=== PATIENT | male | born 1945 | race Caucasian/White ===

== ENCOUNTER 2025-05-16 11:32 | Day surgery (SDC) | payer MEDICARE, SELFPAY ==
--- NOTE | 2025-05-10 18:07 | PAT.ANESEVAL ---
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 When Was Last Pacemaker Check QUESTION #4 FULL TEXT: You/Your Family Experience fever (hyperthermia) with Anesthesia Last Oral Intake Last Oral intake: Last Oral Intake NPO since Meds taken in AM with sips of water? Meds patient instructed to take am of surgery PONV PONV - retail manager in training: PONV - retail manager in training Female No 05/10/25 10:18 HX of Motion Sickness No 05/10/25 10:18 HX of N/V After Surgery No 05/10/25 10:18 Non-Smoker No 05/10/25 10:18 Duration of Surgery greater No 05/10/25 10:18 than 60 minutes Number of Risk Factors PONV Score Height & Weight Height & Weight: Anesthesia: Height & Weight Height 5 ft 7 in 01/11/25 19:30 Respiratory Assessment Respiratory Assessment - retail manager in training: Respiratory Tract Infection Hx - retail manager in training Hx Respiratory Tract Infection No 05/10/25 10:18 STOP Sleep Apnea STOP Sleep Apnea - retail manager in training: STOP Sleep Apnea - retail manager in training Hx Hypertension Yes: CONTROLLED WITH MED 05/10/25 10:18 Hx Sleep Apnea No 05/10/25 10:18 CPAP BIPAP Do you snore loudly (louder No 05/10/25 10:18 than talking or can be heard Do you often feel tired/ No 05/10/25 10:18 fatigued/ sleepy during daytime? Has anyone observed you stop No 05/10/25 10:18 breathing during sleep? STOP Results Negative 05/10/25 10:18 QUESTION #5 FULL TEXT : Do you snore loudly (louder than talking or can be heard through closed doors)? 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 Specify any problems Hx of Preganancy in last 3 N/A 05/10/25 10:18 Months Nurse Filling Out Transfusion NBUCHER 05/10/25 10:18 & Questions: Date: 05/10/25 05/10/25 10:18 Time: 10:20 05/10/25 10:18 Patient unable to answer at this time (ie. confused, unrespo /Reproduction History /Reproductive History - retail manager in training: /Reproductive Hx- retail manager in training Hx Now No 05/10/25 10:18 Gestational Age (in weeks): EDC: Hx Hx Para Hx Section SAB No 05/10/25 10:18 PFS Medical History (Updated 05/10/25 @ 15:27 by Meggan Guerrero) History of Holter monitoring Wears glasses Thyroid disease Ambulates with cane Gout Arthritis High cholesterol Smoker Shortness of breath on exertion History of edema History of echocardiogram History of stress test Cardiology follow-up encounter History of atrial fibrillation Cancer Localized osteoarthritis of left knee Bladder spasm Hypertension Hypothyroidism (acquired) GERD (gastroesophageal reflux disease) Atrial fibrillation and flutter Hyperlipidemia Gout Home Medications ?Medication ?Instructions ?Recorded ?Last Taken ?Type allopurinol 300 mg tablet 300 mg PO DAILY 04/11/23 Unknown History apixaban 5 mg tablet (Eliquis) 5 mg PO BID 04/11/23 Unknown History atorvastatin 40 mg tablet 40 mg PO DAILY 04/11/23 Unknown History esomeprazole magnesium 20 mg 20 mg PO DAILY 04/11/23 Unknown History capsule,delayed release levothyroxine 100 mcg tablet 100 mcg PO DAILY 04/11/23 Unknown History losartan 50 mg tablet 25 mg PO DAILY 04/11/23 Unknown History oxybutynin chloride 15 mg 15 mg PO DAILY 04/11/23 Unknown History tablet,extended release 24 hr Kenalog 40 mg/mL suspension for 80 mg (2 mL) intra-articular ONCE 12/02/24 Unknown Clinic injection (triamcinolone acetonide) #2 mL aspirin 81 mg tablet,delayed 81 mg PO QDAY 01/11/25 Unknown History release cholecalciferol (vitamin D3) 50 50 mcg PO QDAY 01/11/25 Unknown History mcg (2,000 unit) capsule furosemide 20 mg tablet 20 mg PO QAM 01/11/25 Unknown History magnesium oxide 400 mg PO QDAY 01/11/25 Unknown History mecobalamin (vitamin B12) 2,500 2,500 mcg PO DAILY 01/11/25 Unknown History mcg chewable tablet mirabegron 25 mg tablet,extended 25 mg PO DAILY 05/10/25 Unknown History release 24 hr (Myrbetriq) Allergy/AdvReac Type Severity Reaction Status Date / Time No Known Allergies Allergy Verified 05/10/25 10:06 Surgical History (Updated 05/10/25 @ 10:26 by Meggan Guerrero) History of heart surgery History of tonsillectomy History of surgical removal of skin lesion History of hernia repair History of appendectomy History of repair of rotator cuff History of total right knee replacement History of aortic valve replacement Social History Smoking Status: Current some day smoker tobacco type: cigarettes and cigars Audit: Pertinent Findings Pertinent Findings EKG Perinent findings: January 14, 2025. Atrial fibrillation. Left bundle branch block. Compared to EKG of June 24, 2022, atrial fibrillation is new. (Patient does have a history of paroxysmal atrial fibrillation.) Echo (EF%) pertinent findings: 07/04/2023. EF 60 to 65%. Well-seated TAVR, peak gradient 31 mmHg. RVSP is 41 mmHg. 06/01/2022. EF 70% after TAVR placed on 05/31/2020. Consult pertinent findings: 01/14/2025. Dr. James. 1. Aortic stenosis-status post TAVR 05/31/2022. Postprocedure left bundle branch block was noted. Echo from 07/04/2023 revealed well-seated TAVR valve with increased gradient of 31 mmHg. 2. CAD-mild on a pre-TAVR cardiac cath. No symptoms of angina. Continue atorvastatin. 3. Paroxysmal atrial fib. noted on post TAVR event recorder. [id number] score of 5. Patient has a history of previous TIA. Continue with Eliquis and diltiazem. Latest event recorder on 11/26/2023 showed sinus rhythm. 4. Hypertension-BP is high in office. Usually lower at home. 5. Syncope?no clear cause of underlying left bundle branch block. 30-day event monitor without A-fib. 6. Volume overload?possible HFpEF. Doing well with 20 mg of Lasix. Additional pertinent findings: Event monitor November 26, 2023. Predominant rhythm is sinus. Brief SVT 12 beats. No AFib. Recommendation Anesthesia Recommendation Anesthesia recommendation: OPTIMIZED for anesthesia
[2025-05-16] VITALS (8 sets, daily range): BP systolic 88–121; BP diastolic 52–79; PULSE 75–80; RESP 16–18; TEMP 36.3–36.5; O2SAT 92–97; BMI 34.3
--- NOTE | 2025-05-16 11:51 | PCM.PRE.AN2 ---
ASA Classification* ASA Classification ASA Classification: 3 Assessment & Plan Anesthesia* Anesthesia Assessment Anesthesia Assessment: Discussed sedation and/or anesthesia options, risks, benefits, and alternatives with patient/parents/legal guardian/POA. Questions invited. The patient/parents/legal guardian/POA seems to understand and agrees to proceed with anesthesia plan. Reviewed the physical assessment, medical history, allergy history and patient home medications list prior to surgery/procedure/anesthetic and documented any changes. Performed airway and anesthesia risk assessments. 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 When Was Last Pacemaker Check QUESTION #4 FULL TEXT: You/Your Family Experience fever (hyperthermia) with Anesthesia Last Oral Intake Last Oral intake: Last Oral Intake NPO since Meds taken in AM with sips of water? Meds patient instructed to take am of surgery PONV PONV - member service specialist: PONV - member service specialist Female No 05/10/25 10:18 HX of Motion Sickness No 05/10/25 10:18 HX of N/V After Surgery No 05/10/25 10:18 Non-Smoker No 05/10/25 10:18 Duration of Surgery greater No 05/10/25 10:18 than 60 minutes Number of Risk Factors PONV Score Height & Weight Height & Weight: Anesthesia: Height & Weight Height 5 ft 7 in 01/11/25 19:30 Respiratory Assessment Respiratory Assessment - member service specialist: Respiratory Tract Infection Hx - member service specialist Hx Respiratory Tract Infection No 05/10/25 10:18 STOP Sleep Apnea STOP Sleep Apnea - member service specialist: STOP Sleep Apnea - member service specialist Hx Hypertension Yes: CONTROLLED WITH MED 05/10/25 10:18 Hx Sleep Apnea No 05/10/25 10:18 CPAP BIPAP Do you snore loudly (louder No 05/10/25 10:18 than talking or can be heard Do you often feel tired/ No 05/10/25 10:18 fatigued/ sleepy during daytime? Has anyone observed you stop No 05/10/25 10:18 breathing during sleep? STOP Results Negative 05/10/25 10:18 QUESTION #5 FULL TEXT : Do you snore loudly (louder than talking or can be heard through closed doors)? 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 Specify any problems Hx of Preganancy in last 3 N/A 05/10/25 10:18 Months Nurse Filling Out Transfusion NBUCHER 05/10/25 10:18 & Questions: Date: 05/10/25 05/10/25 10:18 Time: 10:20 05/10/25 10:18 Patient unable to answer at this time (ie. confused, unrespo /Reproduction History /Reproductive History - member service specialist: /Reproductive Hx- member service specialist Hx Now No 05/10/25 10:18 Gestational Age (in weeks): EDC: Hx Hx Para Hx Section SAB No 05/10/25 10:18 Active Medications Active Medications: Current Medications Generic Name Dose Route Start Last Admin Trade Name Freq PRN Reason Stop Dose Admin Lactated Ringer's 1,000 mls @ 15 mls/hr 05/16/25 12:00 IV .Q48H GELA PFSH Medical History History of Holter monitoring Wears glasses Thyroid disease Ambulates with cane Gout Arthritis High cholesterol Smoker Shortness of breath on exertion History of edema History of echocardiogram History of stress test Cardiology follow-up encounter History of atrial fibrillation Cancer Localized osteoarthritis of left knee Bladder spasm Hypertension Hypothyroidism (acquired) GERD (gastroesophageal reflux disease) Atrial fibrillation and flutter Hyperlipidemia Gout Home Medications ?Medication ?Instructions ?Recorded ?Last Taken ?Type allopurinol 300 mg tablet 300 mg PO DAILY 04/11/23 Unknown History apixaban 5 mg tablet (Eliquis) 5 mg PO BID 04/11/23 Unknown History atorvastatin 40 mg tablet 40 mg PO DAILY 04/11/23 Unknown History esomeprazole magnesium 20 mg 20 mg PO DAILY 04/11/23 Unknown History capsule,delayed release levothyroxine 100 mcg tablet 100 mcg PO DAILY 04/11/23 Unknown History losartan 50 mg tablet 25 mg PO DAILY 04/11/23 Unknown History oxybutynin chloride 15 mg 15 mg PO DAILY 04/11/23 Unknown History tablet,extended release 24 hr Kenalog 40 mg/mL suspension for 80 mg (2 mL) intra-articular ONCE 12/02/24 Unknown Clinic injection (triamcinolone acetonide) #2 mL aspirin 81 mg tablet,delayed 81 mg PO QDAY 01/11/25 Unknown History release cholecalciferol (vitamin D3) 50 50 mcg PO QDAY 01/11/25 Unknown History mcg (2,000 unit) capsule furosemide 20 mg tablet 20 mg PO QAM 01/11/25 Unknown History magnesium oxide 400 mg PO QDAY 01/11/25 Unknown History mecobalamin (vitamin B12) 2,500 2,500 mcg PO DAILY 01/11/25 Unknown History mcg chewable tablet mirabegron 25 mg tablet,extended 25 mg PO DAILY 05/10/25 Unknown History release 24 hr (Myrbetriq) Allergy/AdvReac Type Severity Reaction Status Date / Time No Known Allergies Allergy Verified 05/10/25 10:06 Surgical History History of heart surgery History of tonsillectomy History of surgical removal of skin lesion History of hernia repair History of appendectomy History of repair of rotator cuff History of total right knee replacement History of aortic valve replacement Social History Smoking Status: Current some day smoker tobacco type: cigarettes and cigars Review of Systems (Anesthesia) ROS Narrative System reviewed and no additional complaints, except as documented.
[2025-05-16] MEDS: Lactated Ringers 1,000 ML 15 ML IV (12:14)
--- NOTE | 2025-05-16 12:35 | RAD_ITS ---
PROCEDURE: FLUOR GUIDANCE FOR SPINE INJ 05/16/2025 REASON FOR EXAM: CAUDAL BLOCK TECHNIQUE: Procedure Code: RADSPN Modality: DX Procedure: FLUOR GUIDANCE FOR SPINE INJ. Intraoperative fluoroscopic services provided for caudal block. 4.3 seconds of fluoroscopy. Radiation dose: 3.12 mGy. 1 image was submitted. COMPARISON: None FINDINGS: Intraoperative fluoroscopic services provided for caudal block. RAD/Fluor Guidance for Spine Inj IMPRESSION: Intraoperative fluoroscopic services provided for caudal block. Reading Location: [facility]
[2025-05-16] MEDS: 0.9% Normal Saline (Pres. free 10 ML Vial (12:39)
[2025-05-16] MEDS: Lidocaine 1% (5 ml sdv) 5 ML Vial (12:39)
--- NOTE | 2025-05-16 12:45 | PCM.OPRPT ---
Operative Report (Standard) Operative Information Date of Procedure: 05/16/25 Pre-Operative Diagnosis: Lumbosacral radiculopathy, lumbosacral degenerative disc disease, lumbosacral spinal stenosis Post-Operative Diagnosis: Lumbosacral radiculopathy, lumbosacral degenerative disc disease, lumbosacral spinal stenosis Surgery/Procedure Performed: Diagnostic/therapeutic caudal epidural steroid injection under fluoroscopic guidance development professional: No Type of Anesthesia: Local MAC RN Documented Start/Stop Times: Operation Date: 05/16/25 12:40 Case Time Into Pre-Op 05/16/25 11:46 Anesthesia Start 05/16/25 12:32 Into Room 05/16/25 12:32 Procedure Start 05/16/25 12:37 Procedure End 05/16/25 12:41 Anesthesia End 05/16/25 12:43 Out of Room 05/16/25 12:43 Procedure Start Time: 12:45 Procedure Stop Time: 12:45 Select all DRAINS/GRAFTS/IMPLANTS that apply: None Estimated Blood Loss: 0 Specimen collected: No Description of surgery: ANESTHESIA: MAC. BLOOD LOSS: Minimal. COMPLICATIONS: None. DESCRIPTION OF PROCEDURE: History and physical of today was reviewed. Risks and benefits of the procedure were explained. The patient understood and agreed to proceed. Informed consent was obtained. IV inserted per routine protocol. The patient was taken to the operating room and placed in the prone position with a pillow positioned underneath the abdomen. The lower back and tailbone area was prepped and draped in a sterile fashion using iodine x3. Under fluoroscopy guidance on a lateral view, the caudal space was identified. The skin and subcutaneous tissue was anesthetized with approximately 3 mL of 1% lidocaine using a 25-gauge regular needle. Under direct visualization with fluoroscopy, using a 22-gauge 3-1/2-inch spinal needle, the needle was advanced via the skin through the sacral hiatus. The tip of the needle was passed through the sacrococcygeal ligament and advanced to approximately S4 area. After negative aspiration of blood or CSF, a total of 3 mL of contrast was injected to confirm correct placement of the needle as well as cephalad spread. The spread was followed to approximately L5 area. After confirmation on AP as well as lateral view and repeated negative aspiration, a total of 15 mL of preservative-free 0.125% Marcaine with 80 mg of Depo-Medrol was injected easily. The needle was then removed intact. The patient experienced no sign or symptoms of intrathecal or intravascular injection. The patient experienced no paresthesia. The procedure was completed without any apparent difficulty or any complications. The patient appeared to tolerate it well. ASSESSMENT AND PLAN: This is an 80-year-old male with Lumbosacral radiculopathy, lumbosacral spinal stenosis, lumbosacral degenerative disc disease, status post diagnostic/therapeutic caudal epidural steroid injection under fluoroscopic guidance, patient will continue her current medications, patient will follow-up in approximately 2 weeks for reevaluation. Surgical Findings: 0 Complications Complications: No Admit VTE Documentation VTE Present on Admission: No VTE Mechan Device Prophylaxis: None VTE Pharm Prophylaxis ordered?: No
--- NOTE | 2025-05-16 12:47 | PCM.POST.ANE ---
Anesthesia: Postop Eval I Current Vital Signs Temperature: 97.6 F Pulse Rate: 80 Blood Pressure: 88/52 Respiratory Rate: 18 Pulse Ox: 93 Oxygen Delivery Method: Room Air Assessment Airway patent: Yes Spontaneous unlabored respirations: Yes nausea: No Vomiting: No Anesthesia Complication: No Fluid Hydration Crystalloid volume administer (ml): 200 Total IV fluid infused: 200 Progress Note Anesthesia document: Postop Eval 1 completed: Yes
--- NOTE | 2025-05-16 14:09 | POSTOPAN2_ITS ---
Anesthesia Postop Eval I Sum Postop Eval Completion status Anesthesia document: Postop Eval 1 completed: Yes Anesthesia Postop Eval I Summary Anesthesia Postop Eval I Summary: Anesthesia Postop Eval I: Assessment Summary Airway patent Yes 05/16/25 12:48 EYEGLASS [email or web address] Spontaneous unlabored Yes 05/16/25 12:48 EYEGLASS [email or web address] respirations Mental status nausea No 05/16/25 12:48 EYEGLASS FRAMES POLISHER.[email or web address] Vomiting No 05/16/25 12:48 EYEGLASS FRAMES POLISHER.[email or web address] Anesthesia Postop Eval I: Fluid Summary Crystalloid volume administer 200 05/16/25 12:48 EYEGLASS [email or web address] [email or web address].[email or web address] (ml) Colloids volume administered ( ml) Blood Product volume administered (ml) Total IV fluid infused 200 05/16/25 12:48 EYEGLASS [email or web address] Anesthesia Postop Eval I: Summary Notes Anesthesia Complication No 05/16/25 12:48 EYEGLASS [email or web address] Anesthesia Complication Comment: Post-operative progress note Anesthesia: Postop Eval II Evaluation Mental status: Awake Pain Level: 0 nausea: No Vomiting: No
--- NOTE | 2025-05-16 14:09 | PCM.POSTANE2 ---
Anesthesia Postop Eval I Sum Postop Eval Completion status Anesthesia document: Postop Eval 1 completed: Yes Anesthesia Postop Eval I Summary Anesthesia Postop Eval I Summary: Anesthesia Postop Eval I: Assessment Summary Airway patent Yes 05/16/25 12:48 RN [email or web address] Spontaneous unlabored Yes 05/16/25 12:48 RN [email or web address] respirations Mental status nausea No 05/16/25 12:48 RN CCU.[email or web address] Vomiting No 05/16/25 12:48 RN CCU.[email or web address] Anesthesia Postop Eval I: Fluid Summary Crystalloid volume administer 200 05/16/25 12:48 RN [email or web address].[email or web address] (ml) Colloids volume administered ( ml) Blood Product volume administered (ml) Total IV fluid infused 200 05/16/25 12:48 RN [email or web address] Anesthesia Postop Eval I: Summary Notes Anesthesia Complication No 05/16/25 12:48 RN [email or web address] Anesthesia Complication Comment: Post-operative progress note Anesthesia: Postop Eval II Evaluation Mental status: Awake Pain Level: 0 nausea: No Vomiting: No
== END 2025-05-16 13:53 | disposition home or self-care (01) ==
LOC: SDC 11:33 → AC 11:35
PROVIDERS: PCP Family Medicine; Referring Provider Anesthesiology Pain Medicine; Visit Provider Anesthesiology Pain Medicine
PROC: 3E0S3BZ Introduction of Anesthetic Agent into Epidural Space, Percutaneous Approach (ICD-10-PCS; CPT 62282; principal; 2025-05-16 12:35)
DX: M51.17 Intervertebral disc disorders with radiculopathy, lumbosacral region (principal); M48.07 Spinal stenosis, lumbosacral region
CPT/HCPCS: 62323; 64483; 77003